=== PATIENT | male | born 1970 | race Two or more races ===

== ENCOUNTER 2017-12-27 08:17 | Emergency (ER) | payer SELFPAY ==
[2017-12-27] MEDS: cefTRIAXone IM 1 GM VIAL IM (09:38)
[2017-12-27] MEDS: ACETAMINOPHEN 500 MG TABLET PO (10:00)
== END 2017-12-27 10:06 | disposition home or self-care (01) ==
LOC: ER 10:06
DX: H60.92 Unspecified otitis externa, left ear (principal); H61.22 Impacted cerumen, left ear
CPT/HCPCS: 96372; 99283; J0696

== ENCOUNTER 2018-07-13 17:26 | Emergency (ER) | payer OTHER ==
[~2018-07-13] VITALS: Ht 167.6 cm; Wt 102.1 kg
[~2018-07-13 17:26] MED LIST: AMOX500C PO; OFLO5DRO7 EACH EAR; TRAM50TA PO
[2018-07-13 18:45] VITALS: BP 156/105
[2018-07-13] MEDS ORDERED: PRED50TA PO (19:08)
[2018-07-13] MEDS ORDERED: AMOX875T PO (19:08)
--- NOTE | 2018-07-13 19:09 | PHYS DOC ---
Past Medical History Past Medical History: No Pertinent History, Arthritis, Other Additional Past Medical Histor: PSORIASIS Past Surgical History: No Surgical History Alcohol Use: None Drug Use: None Adult General Chief Complaint Chief Complaint: EARACHE/EAR PAIN [facility] HPI Patient is a 47 year old male presents for evaluation of arthritis pain from his psoriasis and left ear pain. Patient states he lives in [facility], he is here for work until September. Reports has a history of psoriatic arthritis but has not had a flareup for 4 years. He does not take any daily immune modulating medications for this. He is not having any fevers or joint swelling. No recent falls or injuries. Review of Systems Review of Systems Constitutional: Denies fever or chills [] Eyes: Denies change in visual acuity, redness, or eye pain [] HENT: LEFT EAR PAIN[] Respiratory: Denies cough or shortness of breath [] Cardiovascular: No additional information not addressed in HPI [] GI: Denies abdominal pain, nausea, vomiting, bloody stools or diarrhea [] : Denies dysuria or hematuria [] Musculoskeletal: Denies back pain , JOINT PAIN-DIFFUSE [] Integument: Denies rash or skin lesions [] Neurologic: Denies headache, focal weakness or sensory changes [] Endocrine: Denies polyuria or polydipsia [] All other systems were reviewed and found to be within normal limits, except as documented in this note. Allergies Allergies Allergies Coded Allergies Type Severity Reaction Last Updated Verified No Known Drug Allergies 12/27/17 No Physical Exam Physical Exam Constitutional: Well developed, well nourished, no acute distress, non-toxic appearance. [] HENT: Normocephalic, atraumatic, LEFT TM ERYTHEMA, nose normal. [] Neck: Normal range of motion, no tenderness, supple, no stridor. [] Cardiovascular:Heart rate regular rhythm, no murmur [] Lungs & Thorax: Bilateral breath sounds clear to auscultation [] Skin: Warm, dry, no erythema, no rash,PSORIATIC RASH TO BILAT UE'S AND TRUNK. [ ] Neurologic: Alert and oriented X 3, normal motor function, normal sensory function, no focal deficits noted. [] Psychologic: Affect normal, judgement normal, mood normal. [] Current Patient Data Vital Signs Vital Signs Date Time Temp Pulse Resp B/P (MAP) Pulse Ox O2 Delivery O2 Flow Rate FiO2 1/24/19 18:45 98.1 74 16 156/105 (122) 98 Room Air 98.1 EKG EKG [] Radiology/Procedures Radiology/Procedures [] Course & Med Decision Making Course & Med Decision Making Pertinent Labs and Imaging studies reviewed. (See chart for details) [Patient is started on prednisone for her arthralgias related to psoriatic arthritis, prescription for amoxicillin for left ear pain, recommend close follow-up, as noted the has hypertension today at his visit, he is asymptomatic and does not remember having hypertension in the past. He has never been treated for hypertension. He is given follow-up information for local primary care providers, recommend that he go to a pharmacy, take his blood pressures and keep a log and have her follow-up in the next week for blood pressure with primary care provider. He verbalizes understanding of these discharge instructions.] Dragon Disclaimer Dragon Disclaimer This electronic medical record was generated, in whole or in part, using a voice recognition dictation system. Departure Departure Impression: Primary Impression: Arthralgia Additional Impressions: Otalgia Hypertension Disposition: 01 HOME, SELF-CARE Referrals: NO PCP (PCP) Patient Instructions: Arthralgia, Hypertension, Otalgia Scripts Amoxicillin (AMOXICILLIN) 875 Mg Tablet 1 TAB PO BID, #14 TAB Prov: PRISCILA HARMON APRN 07/13/18 Prednisone (PREDNISONE) 50 Mg Tablet 1 TAB PO DAILY, #5 TAB Prov: PRISCILA HARMON APRN 07/13/18 Problem Qualifiers PRISCILA HARMON APRN Jul 13, 2018 19:09
== END 2018-07-13 19:20 | disposition home or self-care (01) ==
LOC: ER 17:26
DX: H92.02 Otalgia, left ear (principal); L40.50 Arthropathic psoriasis, unspecified; I10 Essential (primary) hypertension
CPT/HCPCS: 99283